=== PATIENT | female | born 2005 | race Caucasian/White ===

== ENCOUNTER 2024-12-28 15:28 | Outpatient (CLI) | payer BC | END 2024-12-28 15:29 | disposition home or self-care (01) | LOC: CSHLAB 15:28 | PROVIDERS: ATTEND Student in an Organized Health Care Education/Training Program | DX: Z01.812 Encounter for preprocedural laboratory examination (principal); N80.9 Endometriosis, unspecified | CPT/HCPCS: 80048; 84703; 85027; 86850; 86900; 86901 ==

== ENCOUNTER 2024-12-30 09:09 | Day surgery (SDC) | payer BC ==
[2024-12-28 16:04] VITALS: BMI 19.5
[2024-12-28 16:33] LABS: Hematocrit 34.8 % (34.9-44.5); Hemoglobin 11.8 g/dL (12.0-15.5); Mean Corpuscular Hemoglobin 28.9 pg (27.0-33.0); Mean Corpuscular Volume 85.1 fL (81.6-98.3); Platelet Count 277 10x3/uL (150-450); Red Blood Cell (RBC) Count 4.09 10x6/uL (3.90-5.03); White Blood Cell (WBC) Count 8.58 10x3/uL (3.5-10.5)
[2024-12-28 16:55] LABS: BHCG - Serum Negative (NEGATIVE); Pregs Control Background? CLEAR/WHITE (CLR/WHITE); Pregs Control Bar Appear? YES (CONTROL BAR)
[2024-12-28 17:05] LABS: Anion Gap 13 mmol/L (10-20); BUN (Urea Nitrogen) 12 mg/dL (7.0-18.7); Calc. Creatinine Clearance 0 mL/min (70-130); Calcium 9.6 mg/dL (7.8-10.44); Carbon Dioxide 24 mmol/L (22-29); Chloride 106 mmol/L (98-107); Glucose 85 mg/dL (70-105); Potassium 4.2 mmol/L (3.5-5.1); Sodium 139 mmol/L (136-145)
[2024-12-30] MEDS ORDERED: PROPOFOL 20 ML ONE (10:13)
[2024-12-30] MEDS ORDERED: Rocuronium Bromide 10 MG/ML (10ML VIAL) ONE (10:17)
[2024-12-30] MEDS ORDERED: Lidocaine 1% PF 5 ML VIAL ONE (10:17)
[2024-12-30] MEDS ORDERED: SUGAMMADEX SODIUM 200 MG/2 ML VIAL ONE (10:17)
[2024-12-30] MEDS ORDERED: diphenhydrAMINE 50 MG/ML VIAL ONE (10:21)
[2024-12-30] MEDS ORDERED: Gabapentin 300 MG CAP ONE (10:35)
[2024-12-30] MEDS ORDERED: Famotidine/PF 20 mg/2ml Vial ONE (10:35)
[2024-12-30] MEDS ORDERED: Bupivacaine HCl 0.5%/Epinephrine 1:200,000/PF 30 ml Vial ONE (11:31)
[2024-12-30] MEDS ORDERED: CEFAZOLIN 2 GM VIAL ONE (11:44)
[2024-12-30] MEDS ORDERED: Ondansetron PF 4 MG/2 ML Vial ONE ×2 (14:00→14:53)
[2024-12-30] MEDS ORDERED: HYDROcodone/Acetaminophen 5/325 mg Tablet ONE (14:32)
== END 2024-12-30 16:18 | disposition home or self-care (01) ==
LOC: CSHSDC 09:09
PROVIDERS: ATTEND Student in an Organized Health Care Education/Training Program
PROC: 0UDB8ZZ Extraction of Endometrium, Via Natural or Artificial Opening Endoscopic (ICD-10-PCS; principal; 2024-12-30)
DX: N80.9 Endometriosis, unspecified (principal)
CPT/HCPCS: 36415; 80048; 84703; 85027; 86850; 86900; 86901; 88305; J1100; J1200; J2250; J2704; S2900